=== PATIENT | male | born 1990 | race Caucasian/White ===

== ENCOUNTER 2017-01-10 15:16 | Emergency (ER) | payer BC ==
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
[2017-01-10] MEDS ORDERED: Diphtheria,Pertussis(Acell),Tetanus Vaccine 0.5 ML Syringe IM ONE (16:00)
[2017-01-10 16:19] VITALS: BP 129/67
[2017-01-10] MEDS ORDERED: Silver Sulfadiazine 1% Crm 400 GM Jar TOP SCH (21:00)
== END 2017-01-10 16:19 | disposition home or self-care (01) ==
LOC: MW.ED 15:16
DX: L55.1 Sunburn of second degree (principal); F17.200 Nicotine dependence, unspecified, uncomplicated; Z23 Encounter for immunization
CPT/HCPCS: 16020; 90471; 90715; 99282; A9270; 99283

== ENCOUNTER 2021-12-27 17:45 | Emergency (ER) | payer SELFPAY ==
[2021-12-27] MEDS ORDERED: Lidocaine 1% with EPINEPHrine 1:100,000 20 ML MDV INJECT ONE (18:04)
[2021-12-27] MEDS ORDERED: Lidocaine 1% 2 ML ONE (18:06)
[2021-12-27] MEDS ORDERED: Lidocaine 1% PF 2 ML SDV INJECT ONE (18:20)
[2021-12-27 21:44] VITALS: BP 134/70; PULSE 69
== END 2021-12-27 20:00 | disposition home or self-care (01) ==
LOC: MW.ED 17:45
DX: S80.12XA Contusion of left lower leg, initial encounter (principal); S81.832A Puncture wound without foreign body, left lower leg, initial encounter; W22.8XXA Striking against or struck by other objects, initial encounter
CPT/HCPCS: 12001; 73560-26-LT; 73560-LT; 99283-25